=== PATIENT | female | born 1950 | race Hispanic/Latino ===

== ENCOUNTER 2018-02-23 16:11 | Outpatient (CLI) | payer MEDICARE | END 2018-02-23 16:12 | disposition home or self-care (01) | LOC: BICMAMMO 16:11 | PROVIDERS: ATTEND Family Medicine | DX: Z12.31 Encounter for screening mammogram for malignant neoplasm of breast (principal); R92.1 Mammographic calcification found on diagnostic imaging of breast | CPT/HCPCS: 77063; 77067 ==

== ENCOUNTER 2020-06-04 14:12 | Outpatient (CLI) | payer MEDICARE ==
--- NOTE | 2020-06-04 15:23 | MMO ---
Bilateral MAMMO Bilat Screen [facility]. CLINICAL HISTORY: Patient is 70 years old and is seen for screening. The patient has no family history of breast cancer. The patient has no personal history of cancer. The patient has a history of right needle biopsy - benign - STEREO BX ? YR BUT BX WAS BENIGN PER PT. VIEWS: The views performed were: bilateral craniocaudal with tomosynthesis and bilateral mediolateral oblique with tomosynthesis. FILMS COMPARED: The present examination has been compared to prior imaging studies performed at [facility] on 02/15/2017 and 02/23/2018. This study has been interpreted with the assistance of computer-aided detection. MAMMOGRAM FINDINGS: There are scattered fibroglandular densities. There are stable benign appearing calcifications seen in both breasts. There are no suspicious masses, suspicious calcifications, or new areas of architectural distortion. IMPRESSION: THERE IS NO MAMMOGRAPHIC EVIDENCE OF MALIGNANCY. A ROUTINE FOLLOW-UP MAMMOGRAM IN 1 YEAR IS RECOMMENDED. THE RESULTS OF THIS EXAM WERE SENT TO THE PATIENT. ACR BI-RADS Category 2 - Benign finding MAMMOGRAPHY NOTE: 1. A negative mammogram report should not delay a biopsy if a dominant of clinically suspicious mass is present. 2. Approximately 10% to 15% of breast cancers are not detected by mammography. 3. Adenosis and dense breasts may obscure an underlying neoplasm. Reported by: ROE DARBY MD Electonically Signed: [id number]
== END 2020-06-04 14:13 | disposition home or self-care (01) ==
LOC: BICMAMMO 14:12
PROVIDERS: ATTEND Family Medicine
DX: Z12.31 Encounter for screening mammogram for malignant neoplasm of breast (principal)
CPT/HCPCS: 77063; 77067

== ENCOUNTER 2021-08-02 10:47 | Outpatient (CLI) | payer MEDICARE | END 2021-08-02 10:48 | disposition home or self-care (01) | LOC: BICCT 10:47 | PROVIDERS: ATTEND Physician Assistant Medical | DX: R10.32 Left lower quadrant pain (principal); K21.9 Gastro-esophageal reflux disease without esophagitis; K57.92 Diverticulitis of intestine, part unspecified, without perforation or abscess without bleeding; R13.10 Dysphagia, unspecified; Z86.010 Personal history of colon polyps | CPT/HCPCS: 74177; 82565 ==

== ENCOUNTER 2024-06-10 13:12 | Outpatient (CLI) | payer MEDICARE | END 2024-06-10 13:13 | disposition home or self-care (01) | LOC: BICMAMMO 13:12 | PROVIDERS: ATTEND Physician Assistant | DX: Z12.31 Encounter for screening mammogram for malignant neoplasm of breast (principal); Z80.3 Family history of malignant neoplasm of breast; Z91.89 Other specified personal risk factors, not elsewhere classified | CPT/HCPCS: 77063; 77067 ==